=== PATIENT | female | born 1965 | race Caucasian/White ===

== ENCOUNTER 2019-12-26 08:15 | Day surgery (SDC) | payer MEDICAID ==
[2019-12-18 10:46] LABS: BASOPHILS % (AUTO) 0.3 % (0-1); EOSINOPHILS % (AUTO) 0.5 % (0-6); LYMPHOCYTES # (AUTO) 2.1 X10'3 (1.1-4.8); LYMPHOCYTES % (AUTO) 26.8 % (21-51); MEAN CORPUSCULAR HEMOGLOBIN 29.5 PG (27.0-31.0); MEAN CORPUSCULAR HGB CONC 33.5 g/dL (33.0-36.5); MEAN CORPUSCULAR VOLUME 88.1 FL (78-98); MEAN PLATELET VOLUME 7.4 FL (7.4-10.4); MONOCYTES # (AUTO) 0.5 X10'3 (0-0.9); MONOCYTES % (AUTO) 6.9 % (2-12); NEUTROPHILS % (AUTO) 65.5 % (42-75); PRE OP HEMOGLOBIN 12.7 g/dL (12.0-16.0); PRE OP PLATELET COUNT 269 X10'3 (140-440); RED BLOOD COUNT 4.31 X10'6 (4.20-5.60); RED CELL DISTRIBUTION WIDTH 13.4 % (11.5-14.5)
[2019-12-18 11:05] LABS: ALBUMIN 3.7 G/DL (3.4-5.0); ALBUMIN/GLOBULIN RATIO 0.9 (1.1-1.5); ALKALINE PHOSPHATASE 117 IU/L (46-116); BLOOD UREA NITROGEN 14 MG/DL (7-18); BUN/CREATININE RATIO 17.7 (6.6-38.0); CALCIUM 9.2 MG/DL (8.5-10.1); CHLORIDE 104 MMOL/L (99-107); CREATININE 0.79 MG/DL (0.40-0.90); PRE OP ALT 31 U/L (30-65); PRE OP ANION GAP 4 (8-16); PRE OP AST 12 U/L (10-37); PRE OP BILIRUB, TOTAL 0.2 MG/DL (0.0-1.0); PRE OP GLUCOSE 147 MG/DL (70-104); PRE OP POTASSIUM 3.9 MMOL/L (3.4-5.1); PRE OP SODIUM 140 MMOL/L (135-145); TOTAL CARBON DIOXIDE 31.7 MMOL/L (24-32); eGFR 76 ML/MIN
[~2019-12-26] VITALS: Ht 162.6 cm; Wt 88.5 kg
[~2019-12-26 08:15] MED LIST: ATOR20TA66 PO; INSU100I31 SQ; LIRA0.6P2 SUBCUT; cefazolin/dext.iso 2gm/100ml 100 ML IV ONE; famotidine 20mg tablet PO ONE; ringers solution, lacted 1,000 ML IV SCH; vancomycin inj 1,500 MG in normal saline 300ml IV soln IV ONE
[2019-12-26 08:20] VITALS: BP 137/89
[2019-12-26] MEDS ORDERED: BUPIVAcaine/PF 2.5 mg/ml (0.25%) 30ml vial ONE (09:23)
[2019-12-26] MEDS ORDERED: methylPREDNISolone sod succ 125mg/2ml vial ONE (09:23)
[2019-12-26] MEDS ORDERED: LIDOcaine 0.5% (5mg/ml) 50ml vial ONE (10:49)
[2019-12-26] MEDS ORDERED: fentaNYL/PF 50MCG/1 ML 2ML syringe ONE ×2 (10:56→11:31)
[2019-12-26] MEDS ORDERED: MIDAZolam 5mg/5ml vial ONE (11:09)
[2019-12-26] MEDS ORDERED: ringers solution, lacted 1,000 ML IV SCH (11:36)
[2019-12-26] MEDS ORDERED: proCHLORperazine 10 MG/2 ml inj IV PRN (11:40)
[2019-12-26] MEDS ORDERED: morphine 4 MG/ML inj SYRINge IV PRN (11:40)
[2019-12-26] MEDS ORDERED: morphine 2 MG/ML inj. syringe IV PRN (11:40)
[2019-12-26] MEDS ORDERED: ondansetron/PF 4mg/2ml inj IV PRN (11:40)
[2019-12-26] MEDS ORDERED: meperidine/PF 25mg/ml syringe IV PRN ×3 (11:40)
[2019-12-26] MEDS ORDERED: propofol inj 20 ML IV ONE (11:50)
[2019-12-26] MEDS ORDERED: LIDOcaine 1%/PF 5ML 10 MG/ML VIAL ONE (11:50)
[2019-12-26 12:00] VITALS: BP 134/74
--- NOTE | 2019-12-26 12:00 | NUR ---
Received from OR via BED , accompanied by Anesthesiologist DR EMMANUEL and report given by Anesthesiolgist. PATIENT A&OX4, DENIES PAIN, V/S WNL, NEUROVASCULAR CHECKS INTACT, 20G PIV LUE, RIGHT WRIST SPLINT DRESSING CDI.
[2019-12-26 12:10] VITALS: BP 139/74
[2019-12-26 12:20] VITALS: BP 141/78
[2019-12-26 12:30] VITALS: BP 139/74
[2019-12-26 12:40] VITALS: BP 143/69
--- NOTE | 2019-12-26 12:40 | NUR ---
PATIENT A&OX4, DENIES PAIN, V/S WNL, NEUROVASCULAR CHECKS INTACT, 20G PIV LUE D/C, RIGHT WRIST SPLINT DRESSING CDI. I HAVE REVIEWED D/C INSTRUCTIONS WITH PATIENT AND SHE HAS VERBALIZED UNDERSTANDING. PATIENT D/C HOME WITH ALL BELONGINGS AND FAMILY FRIEND GAVE TRANSPORT HOME.
== END 2019-12-26 12:40 | disposition home or self-care (01) ==
LOC: PAS 08:15
PROVIDERS: ATTEND Orthopaedic Surgery
DX: G56.01 Carpal tunnel syndrome, right upper limb (principal); G56.21 Lesion of ulnar nerve, right upper limb; M65.311 Trigger thumb, right thumb; M66.341 Spontaneous rupture of flexor tendons, right hand; M65.341 Trigger finger, right ring finger; F43.10 Post-traumatic stress disorder, unspecified; E11.59 Type 2 diabetes mellitus with other circulatory complications; D64.9 Anemia, unspecified; F41.8 Other specified anxiety disorders; E66.8 Other obesity; Z68.34 Body mass index [BMI] 34.0-34.9, adult; Z82.49 Family history of ischemic heart disease and other diseases of the circulatory system; Z83.3 Family history of diabetes mellitus; Z80.9 Family history of malignant neoplasm, unspecified; Z88.6 Allergy status to analgesic agent
CPT/HCPCS: 26055; 26357; 36415; 64719; 64721; 80053; 82948; 85025; A6222; J2001; J2250; J2704; J2930; J3010; J3370; J3490; J7120; A4215; A4618; A6449; A7000

== ENCOUNTER 2021-09-03 13:00 | Emergency (ER) | payer MEDICAID ==
[~2021-09-03] VITALS: Ht 162.6 cm; Wt 87.3 kg
[~2021-09-03 13:00] MED LIST changes: -cefazolin/dext.iso 2gm/100ml 100 ML IV ONE; -famotidine 20mg tablet PO ONE; -ringers solution, lacted 1,000 ML IV SCH; -vancomycin inj 1,500 MG in normal saline 300ml IV soln IV ONE
[2021-09-03 14:34] LABS: CLARITY,URINE CLEAR (Clear); COLOR,URINE YELLOW (Yellow); GLUCOSE, URINE NEGATIVE (Neg); KETONES,URINE NEGATIVE (Neg); LEUKOCYTE ESTERASE ,URINE NEGATIVE (Neg); NITRITES, URINE NEGATIVE (Neg); OCCULT BLOOD,URINE NEGATIVE (Neg); PH,URINE 5.5 (4.8-8.0); PROTEIN,URINE NEGATIVE (Neg); UA COLLECTION TYPE CLN CATCH MIDSTREAM; UROBILINOGEN,URINE 0.2 E.U/dL (0.2-1.0)
[2021-09-03] MEDS ORDERED: CYCL-1 PO (20:34)
[2021-09-03] MEDS ORDERED: IBUP-1984 PO (20:34)
[2021-09-03] MEDS ORDERED: ketorolac tromethamine 15mg/ml inj. IM ONE (20:35)
[2021-09-03 20:56] VITALS: BP 146/71
== END 2021-09-03 21:40 | disposition home or self-care (01) ==
LOC: ER 13:01
DX: R10.84 Generalized abdominal pain (principal); E11.9 Type 2 diabetes mellitus without complications; M19.90 Unspecified osteoarthritis, unspecified site; Z88.5 Allergy status to narcotic agent; Z79.4 Long term (current) use of insulin; Z79.899 Other long term (current) drug therapy
CPT/HCPCS: 74176; 81003; 96372; 99284; J1885